=== PATIENT | male | born 1995 | race African-American/Black ===

== ENCOUNTER 2019-05-19 14:09 | Emergency (ER) | payer MEDICAID ==
[~2019-05-19] VITALS: Ht 188 cm; Wt 80.2 kg
[2019-05-19 14:34] VITALS: BP 127/81
[2019-05-19] MEDS ORDERED: DEXAMETHASONE 4 MG TABLET ONE (14:48)
[2019-05-19] MEDS ORDERED: HYDROcodone/APAP 7.5-325MG/15ML UDC ONE (14:48)
--- NOTE | 2019-05-19 14:59 | NUR ---
PT HERE FOR SORE THROAT X 2 DAYS. PT DENIES ANY INJURY TO THROAT AREA. PT REPORTS FEVER LAST NIGHT AND INCREASED DIFFICULTY SWALLOWING. PT HAS NO OTHER COMPLAINTS.
[2019-05-19] MEDS ORDERED: DEXAMETHASONE 4 MG TABLET PO ONE (15:00)
[2019-05-19] MEDS ORDERED: HYDROcodone/APAP 7.5-325MG/15ML UDC PO PRN (15:00)
[2019-05-19] MEDS ORDERED: KETOROLAC 30 MG/1 ML IM ONE (15:00)
--- NOTE | 2019-05-19 15:02 | NUR ---
pt medicated per emar.
--- NOTE | 2019-05-19 15:37 | NUR ---
Patient/Caregiver given discharge instructions and they have confirmed that they understand the instructions. Patient ambulatory with steady gait.
== END 2019-05-19 15:40 | disposition home or self-care (01) ==
LOC: ED 15:30
DX: J03.00 Acute streptococcal tonsillitis, unspecified (principal); R50.81 Fever presenting with conditions classified elsewhere; R13.10 Dysphagia, unspecified
CPT/HCPCS: 87880; 99283; 99284